=== PATIENT | female | born 1935 | race Two or more races ===

== ENCOUNTER 2021-12-16 09:50 | Emergency (ER) | payer OTHER ==
[~2021-12-16] VITALS: Ht 152.4 cm; Wt 63.5 kg
[~2021-12-16 09:50] MED LIST: NEURONTIN600 MG PO; PERCOCET 10-3251 TAB PO; ULTRACET
[2021-12-16] MEDS ORDERED: ZANAFLEX2 MG PO (10:06)
[2021-12-16] MEDS ORDERED: ANUSOL-HC25 MG RECTAL ×2 (17:14→17:17)
== END 2021-12-16 17:32 | disposition home or self-care (01) ==
LOC: ER 09:50
DX: K62.5 Hemorrhage of anus and rectum (principal); I10 Essential (primary) hypertension; Z20.822 Contact with and (suspected) exposure to COVID-19

== ENCOUNTER 2021-12-25 14:05 | Inpatient (IN) | payer OTHER ==
[~2021-12-25] VITALS: Ht 160 cm; Wt 154.9 kg
[~2021-12-25 14:05] MED LIST changes: +ANUSOL-HC25 MG RECTAL; +ZANAFLEX2 MG PO
[2021-12-30] MEDS ORDERED: PANTOPRAZOLE SO40 MG (14:30)
[2021-12-31] MEDS ORDERED: INTESTINEX680 M1 PO (14:49)
[2021-12-31] MEDS ORDERED: VITAMIN B-121000 MC2 SL (14:50)
[2021-12-31] MEDS ORDERED: POLY119PG PO (14:51)
[2021-12-31] MEDS ORDERED: FOLIC ACID1 MG PO (14:51)
== END 2021-12-31 23:17 | disposition home or self-care (01) | DRG 394 ==
LOC: ER 14:05 → MEDI 16:41
PROVIDERS: ADMIT Internal Medicine; ATTEND Internal Medicine
PROC: BW21ZZZ Computerized Tomography (CT Scan) of Abdomen and Pelvis (ICD-10-PCS; 2021-12-25)
PROC: BW2GZZZ Computerized Tomography (CT Scan) of Pelvic Region (ICD-10-PCS; 2021-12-26)
PROC: 30233N1 Transfusion of Nonautologous Red Blood Cells into Peripheral Vein, Percutaneous Approach (ICD-10-PCS; 2021-12-26)
PROC: 0DBN8ZX Excision of Sigmoid Colon, Via Natural or Artificial Opening Endoscopic, Diagnostic (ICD-10-PCS; principal; 2021-12-30)
DX: D12.5 Benign neoplasm of sigmoid colon (principal); K62.5 Hemorrhage of anus and rectum; D50.0 Iron deficiency anemia secondary to blood loss (chronic); K62.89 Other specified diseases of anus and rectum; K64.8 Other hemorrhoids; Z20.822 Contact with and (suspected) exposure to COVID-19; K57.30 Diverticulosis of large intestine without perforation or abscess without bleeding

== ENCOUNTER 2022-11-04 10:32 | Emergency (ER) | payer OTHER ==
[~2022-11-04] VITALS: Ht 154.9 cm; Wt 63.5 kg
[~2022-11-04 10:32] MED LIST changes: +FOLIC ACID1 MG PO; +INTESTINEX680 M1 PO; +PANTOPRAZOLE SO40 MG; +POLY119PG PO; +VITAMIN B-121000 MC2 SL
== END 2022-11-05 22:30 | disposition home or self-care (01) ==
LOC: ER 10:32
DX: K29.70 Gastritis, unspecified, without bleeding (principal); E87.6 Hypokalemia; R53.1 Weakness

== ENCOUNTER 2023-09-08 09:26 | Outpatient (CLI) | payer OTHER | END 2023-09-08 09:27 | disposition home or self-care (01) | LOC: NUCLEAR 09:26 | PROVIDERS: ATTEND Internal Medicine | DX: M88.89 Osteitis deformans of multiple sites (principal) | CPT/HCPCS: 78306; A9503 ==

== ENCOUNTER 2023-09-08 10:10 | Outpatient (CLI) | payer OTHER | END 2023-09-08 10:28 | disposition home or self-care (01) | LOC: RAD 10:10 | PROVIDERS: ATTEND Internal Medicine | DX: M88.89 Osteitis deformans of multiple sites (principal) ==